=== PATIENT | male | born 1975 | race Caucasian/White ===

== ENCOUNTER 2017-12-08 09:45 | Day surgery (SDC) | payer OTHER ==
[~2017-12-08 09:45] MED LIST: CEFAZOLIN 2 GM/50 ML (PMX) 50 ML IVPB; DEXAMETHASONE 4 MG TAB PO; GABAPENTIN 300 MG CAP PO
[2017-12-08] MEDS: GABAPENTIN 300 MG CAP PO (10:30)
[2017-12-08] MEDS: DEXAMETHASONE 4 MG TAB PO (10:30)
[2017-12-08] MEDS ORDERED: MIDAZOLAM 1 MG/ML 2 ML INJ (10:52)
[2017-12-08] MEDS ORDERED: HYDROmorphONE 2 MG/ML SYG (10:52)
[2017-12-08] MEDS ORDERED: METOCLOPRAMIDE 10 MG INJ (10:52)
[2017-12-08] MEDS ORDERED: ONDANSETRON 4 MG INJ (10:52)
[2017-12-08] MEDS ORDERED: CEFAZOLIN 1 GM INJ (10:52)
[2017-12-08] MEDS ORDERED: KETOROLAC 30 MG INJ (10:52)
[2017-12-08] MEDS ORDERED: ROPIVACAINE 0.5 % 30 ML VIAL (10:52)
[2017-12-08] MEDS ORDERED: DEXAMETHASONE 4 MG/ML 1 ML INJ (10:52)
[2017-12-08] MEDS ORDERED: PROPOFOL 20 ML (10:52)
[2017-12-08] MEDS ORDERED: ROCURONIUM 50 MG INJ (10:52)
[2017-12-08] MEDS ORDERED: BUPIVACAINE 0.5%/EPI (SDV) 30 ML INJ (11:43)
[2017-12-08] MEDS ORDERED: GLYCOPYRROLATE 0.4 MG INJ (13:25)
[2017-12-08] MEDS ORDERED: NEOSTIGMINE 3 MG/3 ML SYRINGE (13:25)
[2017-12-08] MEDS ORDERED: ACETAMINOPHEN 1000MG/100ML IV 100 ML (13:32)
== END 2017-12-08 17:00 | disposition home or self-care (01) ==
LOC: SDS 09:45
DX: M13.811 Other specified arthritis, right shoulder (principal); S46.211D Strain of muscle, fascia and tendon of other parts of biceps, right arm, subsequent encounter; X58.XXXD Exposure to other specified factors, subsequent encounter
CPT/HCPCS: 29823